=== PATIENT | female | born 1945 | race Caucasian/White ===

== ENCOUNTER 2020-02-09 14:36 | Inpatient (IN) | payer MEDICARE ==
[2020-02-09] VITALS (28 sets, daily range): BP systolic 78–113; BP diastolic 33–68
[~2020-02-09] VITALS: Ht 162.6 cm; Wt 77.2 kg
[2020-02-09 15:03] LABS: HEMATOCRIT 30.4 % (37.0-47.0); HEMOGLOBIN 11.2 gm/dL (12.0-15.0); MCH 33.9 pg (26.0-34.0); MCHC 36.8 g/dL (28.0-37.0); MCV 92.1 fL (80.0-100.0); NUCLEATED RBCS 0 /100WBC; PLATELET COUNT* 187 thou/uL (150-400); RDW-CV 13.5 % (10.5-14.5); WBC 3.9 thou/uL (4.0-11.0)
[2020-02-09] MEDS ORDERED: ZESTRIL5 MG PO (15:04)
[2020-02-09 15:09] LABS: CALCIUM 9.6 mg/dL (8.5-10.1); CREATININE 1.4 mg/dL (0.6-1.3)
[2020-02-09 15:13] LABS: INR 1.1; PROTIME 11.2 Seconds (9.20-11.50)
[2020-02-09 15:20] LABS: ALBUMIN 3.8 g/dL (3.4-5.0); TOTAL BILIRUBIN 0.9 mg/dL (<0.1-1.0); TOTAL PROTEIN 7.3 g/dL (6.4-8.2)
[2020-02-09 15:47] LABS: PLATELET ESTIMATE ADEQUATE
[2020-02-09 15:48] LABS: ABSOLUTE LYMPHOCYTES 0.3 thou/uL (0.8-5.3); ABSOLUTE MONOCYTES 0.2 thou/uL (0.0-1.2); ABSOLUTE NEUTROPHILS 3.4 thou/uL (1.6-8.1)
[2020-02-09 20:02] LABS: CALCIUM 7.9 mg/dL (8.5-10.1); CREATININE 1.4 mg/dL (0.6-1.3); POTASSIUM 5.1 mmol/L (3.5-5.1)
[2020-02-10] VITALS (118 sets, daily range): BP systolic 61–136; BP diastolic 26–115
[2020-02-10 02:56] LABS: CALCIUM 7.8 mg/dL (8.5-10.1); CREATININE 1.5 mg/dL (0.6-1.3); MAGNESIUM 2.2 mg/dL (1.8-2.4); POTASSIUM 4.8 mmol/L (3.5-5.1)
[2020-02-10 06:47] LABS: HEMATOCRIT 29.7 % (37.0-47.0); HEMOGLOBIN 10.8 gm/dL (12.0-15.0); MCH 33.7 pg (26.0-34.0); MCHC 36.4 g/dL (28.0-37.0); MCV 92.7 fL (80.0-100.0); MPV 6.5 fl. (7.2-11.1); PLATELET COUNT* 191 thou/uL (150-400); RDW-CV 13.7 % (10.5-14.5)
[2020-02-10 06:50] LABS: WBC 1.2 thou/uL (4.0-11.0)
[2020-02-10 07:07] LABS: CALCIUM 7.9 mg/dL (8.5-10.1); CREATININE 1.7 mg/dL (0.6-1.3)
[2020-02-10 07:24] LABS: NUCLEATED RBCS 0 /100WBC
[2020-02-10 07:36] LABS: URINE BLOOD NEGATIVE (Negative); URINE CLARITY SL CLOUDY; URINE COLOR BROWN; URINE GLUCOSE-RANDOM NEGATIVE (Negative); URINE KETONES TRACE (Negative); URINE LEUKOCYTES-REFLEX TRACE (Negative); URINE PROTEIN TRACE (Negative)
[2020-02-10 07:38] LABS: ICTOTEST (BILI CONFIRMATORY) Negative (Negative); URINE BILIRUBIN 1+ (Negative); URINE NITRITE-REFLEX POSITIVE (Negative)
[2020-02-10 07:43] LABS: SQUAMOUS 0-3 Few /LPF (0-3)
[2020-02-10 07:44] LABS: BACTERIA-REFLEX >30 Many /HPF (None Seen); CRYSTALS None Seen /LPF (None Seen); HYALINE CASTS 0-3 Few /LPF (None Seen); MUCUS 0-3 Light strn/LPF (None Seen); URINE RBC 0-2 Rare /HPF (0-2); URINE WBC-REFLEX 0-5 Rare /HPF (0-5)
[2020-02-10 07:50] LABS: PHOSPHORUS* 5.8 mg/dL (2.5-4.9)
[2020-02-10 08:00] LABS: ABSOLUTE LYMPHOCYTES 0.5 thou/uL (0.8-5.3); ABSOLUTE MONOCYTES 0.1 thou/uL (0.0-1.2); ABSOLUTE NEUTROPHILS 0.6 thou/uL (1.6-8.1); ANISOCYTOSIS 1+; PLATELET ESTIMATE ADEQUATE; POIKILOCYTOSIS 1+
[2020-02-10 12:06] LABS: URINE POTASSIUM-RANDOM 54.6 mmol/L
--- NOTE | 2020-02-10 12:14 | EKG ---
[place] [address] ELECTROCARDIOGRAM REPORT Name: KERRY CASTRO Nirali Room: [address] IN .R.#: [id number] Admission: 02/09/20 Attend Phys: Duran Kennedy, Discharge: Date of : 45 Date of Service: 02/09/20 1531 Report #: [id number] THIS REPORT FOR: //name// [facility] ED Test Date: 2020-02-09 Test Time: 15:31:28 Pat Name: KERRY CASTRO Department: Room: [facility] Gender: F Division Leader: TP : 1945 Requested By: Emile Rossi Order Number: [id number] MD: Sami Moore Measurements Intervals [place] Rate: 78 P: 18 [place]: 138 QRS: 27 QRSD: 77 T: 85 QT: 397 QTc: 453 Interpretive Statements Sinus rhythm Baseline wander in lead(s) V1 No previous ECG available for comparison Electronically Signed On 02-10-2020 12:14:02 CDT by Sami Moore [email or web address] <ELECTRONICALLY SIGNED> By: Sami Moore MD, FACC 02/10/20 1214 1531 1531 Sami Moore MD, [facility] /EPI
[2020-02-10 12:21] LABS: MAGNESIUM 2.1 mg/dL (1.8-2.4)
--- NOTE | 2020-02-10 12:30 | 2DMMODE ---
[place] [address] 2 D/M-MODE ECHOCARDIOGRAM Name: KERRY CASTRO Nirali Room: [address] IN [facility]#: [id number] Admission: 02/09/20 Attend Phys: Duran Kennedy, Discharge: Date of : 45 Date of Service: 02/10/20 1229 Report #: [id number] THIS REPORT FOR: cc: Segundo Sorenson MD, Khanh MD Liston, Michael J. MD [facility] ~ APPROVED REPORT Study performed: 02/10/2020 10:17:58 EXAM: Comprehensive 2D, Doppler, and color-flow Echocardiogram Patient Location: In-Patient Room #: 006 Status: routine BSA: 1.73 HR: 99 bpm BP: 101/54 mmHg Rhythm: NSR Other Information Technically limited study due to poor apical views due to breast implants. Indications CVA/TIA Chemo Echo Enhancing Agent Indication: Rule out Shunt Agent(s) / Amount(s) Used: Agitated Saline 10 cc 2D Dimensions IVSd: 8.49 (7-11mm) LVOT Diam: 19.16 (18-24mm) LVDd: 37.12 mm PWd: 7.90 (7-11mm) Ascending Ao: 32.92 (22-36mm) LVDs: 31.14 (25-40mm) Aortic Root: 31.93 mm Aortic Valve AoV Peak Wiley.: 1.00 m/s AO Peak Gr.: 3.99 mmHg LVOT Max P.94 mmHg AO Mean Gr.: 2.41 mmHg LVOT Mean P.25 mmHg LVOT Max V: 0.86 m/s AO V2 VTI: 12.27 cm LVOT Mean V: 0.50 m/[place] [address] 2 D/M-MODE ECHOCARDIOGRAM Name: KERRY CASTRO Room: [address] IN [facility]#: [id number] Admission: 02/09/20 Attend Phys: Duran Kennedy, Discharge: Date of : 45 Date of Service: 02/10/20 1229 Report #: [id number] JENS (VTI): 2.90 cm2 LVOT V1 VTI: 12.35 cm Mitral Valve E/A Ratio: 0.72 MV Decel. Time: 265.21 ms MV E Max Wiley.: 0.50 m/s MV PHT: 76.91 ms MVA (PHT): 2.86 cm2 Pulmonary Valve PV Peak Wiley.: 0.80 m/s PV Peak Gr.: 2.55 mmHg Tricuspid Valve RAP Estimate: 5.00 mmHg TR Peak Gr.: 14.54 mmHg RVSP: 19.00 mmHg PA Pressure: 19.00 mmHg Left Ventricle The left ventricle is normal size. Mild global hypokinesis noted. There is normal left ventricular wall thickness. Left ventricular systolic function is mildly decreased. LVEF is 45-50%. Right Ventricle The right ventricle is normal size. The right ventricular systolic function is normal. Atria The left atrium size is normal. The interatrial septum is intact with no evidence for an atrial septal defect. The right atrium size is normal. Aortic Valve Mild aortic valve sclerosis. No aortic regurgitation is present. There is no aortic valvular stenosis. Mitral Valve The mitral valve is normal in structure. There is no mitral valve regurgitation noted. No evidence of mitral valve stenosis. Tricuspid Valve The tricuspid valve is normal in structure. Trace tricuspid regurgitation. No pulmonary hypertension. Pulmonic Valve The pulmonary valve is normal in structure. Trace [place] [address] 2 D/M-MODE ECHOCARDIOGRAM Name: KERRY CASTRO Room: [address]#: [id number] Admission: 02/09/20 Attend Phys: Duran Kennedy, Discharge: Date of : 45 Date of Service: 02/10/20 1229 Report #: [id number] Great Vessels The aortic root is normal in size. IVC is normal in size and collapses >50% with inspiration. Pericardium There is no pericardial effusion. <Conclusion> The left ventricle is normal size. There is normal left ventricular wall thickness. Left ventricular systolic function is mildly decreased. LVEF is 45-50%. Mild global hypokinesis noted. The interatrial septum is intact with no evidence for an atrial septal defect. <ELECTRONICALLY SIGNED> By: Sami Moore MD, FACC 02/10/20 1229 1229 1229 Sami Moore MD, FACC /INF
[2020-02-10 20:26] LABS: CALCIUM 7.5 mg/dL (8.5-10.1)
[2020-02-10 22:10] LABS: BE -8.9 mmol/L (-2 to +3); PCO2 27.1 mmHg (35.0-45.0); PO2 120.5 mmHg (75.0-100.0); pH 7.362 (7.340-7.450)
[2020-02-11] VITALS (91 sets, daily range): BP systolic 70–127; BP diastolic 32–96
[2020-02-11 05:36] LABS: CALCIUM 7.4 mg/dL (8.5-10.1); CREATININE 0.8 mg/dL (0.6-1.3); POTASSIUM 4.5 mmol/L (3.5-5.1)
[2020-02-11 05:49] LABS: ALBUMIN 1.9 g/dL (3.4-5.0); CALCIUM 7.3 mg/dL (8.5-10.1); CREATININE 0.9 mg/dL (0.6-1.3); MAGNESIUM 2.2 mg/dL (1.8-2.4); PHOSPHORUS* 3.1 mg/dL (2.5-4.9); POTASSIUM 4.7 mmol/L (3.5-5.1)
[2020-02-11 08:10] LABS: ABSOLUTE LYMPHOCYTES 0.3 thou/uL (0.8-5.3); ABSOLUTE MONOCYTES 0.3 thou/uL (0.0-1.2); ABSOLUTE NEUTROPHILS 0.3 thou/uL (1.6-8.1); BASOPHILS 0.1 %; EOSINOPHILS 0.4 %; HEMATOCRIT 29.1 % (37.0-47.0); HEMOGLOBIN 10.6 gm/dL (12.0-15.0); LYMPHOCYTES 33.8 %; MCH 33.4 pg (26.0-34.0); MCHC 36.3 g/dL (28.0-37.0); MCV 91.8 fL (80.0-100.0); MONOCYTES 31.6 %; MPV 7.1 fl. (7.2-11.1); NUCLEATED RBCS 0 /100WBC; PLATELET COUNT* 212 thou/uL (150-400); POLYS 34.1 %; RBC 3.17 mil/uL (4.20-5.00); RDW-CV 13.9 % (10.5-14.5)
[2020-02-11 08:40] LABS: WBC 0.8 thou/uL (4.0-11.0)
[2020-02-12] VITALS (94 sets, daily range): BP systolic 81–137; BP diastolic 36–89
[2020-02-12 05:39] LABS: HEMATOCRIT 24.1 % (37.0-47.0); HEMOGLOBIN 8.7 gm/dL (12.0-15.0); MCH 33.6 pg (26.0-34.0); MCHC 36.1 g/dL (28.0-37.0); MPV 7.4 fl. (7.2-11.1); RBC 2.6 mil/uL (4.20-5.00); RDW-CV 14.1 % (10.5-14.5)
[2020-02-12 05:58] LABS: ALBUMIN 1.6 g/dL (3.4-5.0); CALCIUM 7.4 mg/dL (8.5-10.1); MAGNESIUM 2.5 mg/dL (1.8-2.4); POTASSIUM 4.4 mmol/L (3.5-5.1); TOTAL BILIRUBIN 0.7 mg/dL (<0.1-1.0); TOTAL PROTEIN 5.3 g/dL (6.4-8.2)
[2020-02-12 06:11] LABS: WBC 0.9 thou/uL (4.0-11.0)
--- NOTE | 2020-02-12 10:36 | CON ---
[address] [address] CONSULTATION Name: KERRY CASTRO Nirali Room: [address] ADM IN .R.#: [id number] Admission: 02/09/20 Attend Phys: Duran Kennedy MD Discharge: Date of : 45 Report #: [id number] THIS REPORT FOR: //name// cc: Segundo Sorenson MD, Khanh MD ~ THIS REPORT FOR: //name// CC: Duran Sorenson DATE OF SERVICE: 02/12/2020 CARDIOLOGY CONSULTATION PRIMARY CARE PHYSICIAN: Segundo Sorenson MD HISTORY OF PRESENT ILLNESS: The patient is a 74-year-old white female who I was asked to see in the hospital today after she was noted to be in atrial fibrillation. The patient has an extensive and complicated past medical history. Apparently, she was diagnosed with breast cancer back in 2008, treated with mastectomy, chemotherapy and radiation. In the spring of this year, she developed dysfunctional uterine bleeding. She was found to have evidence of endometrial adenocarcinoma. She underwent a hysterectomy in November. She was started on chemotherapy. She was brought here to the Emergency Room 3 days ago. She has been weak and apparently passed out. She has been using a walker. When paramedics arrived, her blood pressure was low. She just received chemotherapy last week. She denied any fever, vomiting, chest pain, shortness of breath. She was admitted to the ICU and started on vasopressors. Last night, the patient went into atrial fibrillation with rapid ventricular response rate. Cardiology consultation requested. At this time, there are no family members available. The patient is drowsy and unable to answer questions. PAST MEDICAL HISTORY: She has had previous breast reconstruction. She has had a fracture of wrist with surgery. MEDICATIONS: On admission include lisinopril for high blood pressure. ALLERGIES: SHE HAS AN ALLERGY TO SULFA DRUGS. SOCIAL HISTORY: She is . Uses alcohol occasionally. Nonsmoker. FAMILY HISTORY: Her brother had lung cancer. REVIEW OF SYSTEMS: No history of stroke, asthma, liver disease, kidney disease, [place] [address] CONSULTATION Name: KERRY CASTRO Room: [address]#: [id number] Admission: 02/09/20 Attend Phys: Duran Kennedy MD Discharge: Date of : 45 Report #: [id number] PHYSICAL EXAMINATION: GENERAL: Revealed an elderly frail appearing female, lying in bed with her eyes closed. VITAL SIGNS: Currently her blood pressure is 100 systolic, pulse is 160 and irregular. She is afebrile. HEENT: She was anicteric, conjunctivae pale. Mucous members are dry. NECK: Veins do not appear distended. CHEST: Clear to auscultation. CARDIOVASCULAR: Regular, tachycardia. ABDOMEN: Soft. EXTREMITIES: Had no pitting edema. SKIN: Cool and dry. NEUROLOGIC: She is drowsy. ECG shows atrial fibrillation with rapid ventricular response rate, nonspecific T-wave changes. She actually had an echocardiogram performed 2 days ago here at [facility] that estimated ejection fraction of 45%. No evidence of shunt. Her workup since she was admitted, portable chest x-ray showed normal heart size, clear lung fatima. LABORATORY DATA: Sodium 127, BUN 35, creatinine 1.0. Her albumin is 1.6. Troponin 0.06. BNP 207. TSH 0.3, T4 of 1.1. Her white blood cell count 0.9, hemoglobin 8.7, platelet count 180,000. IMPRESSION AND RECOMMENDATIONS: 1. Atrial fibrillation. Recommend cardioversion. The patient is hypotensive. 2. Altered mental status. 3. Recent therapy for adenocarcinoma of the uterus. 4. History of breast cancer. 5. Hypertension. I would hold lisinopril. 6. Hypertension. Concerned about sepsis. 7. Neutropenia secondary to recent chemotherapy. 8. Anemia. No history of bleeding. <ELECTRONICALLY SIGNED> By: Dwight Galindo MD, [facility] 02/12/20 1036 0944 [id number] Galindo MD, [facility] /nt
[2020-02-13] VITALS (37 sets, daily range): BP systolic 94–172; BP diastolic 44–74
[2020-02-13 04:59] LABS: ABSOLUTE LYMPHOCYTES 0.4 thou/uL (0.8-5.3); ABSOLUTE MONOCYTES 0.5 thou/uL (0.0-1.2); ABSOLUTE NEUTROPHILS 1.6 thou/uL (1.6-8.1); BASOPHILS 0.1 %; EOSINOPHILS 1.3 %; HEMATOCRIT 23.7 % (37.0-47.0); HEMOGLOBIN 8.4 gm/dL (12.0-15.0); LYMPHOCYTES 16.5 %; MCH 33.3 pg (26.0-34.0); MCHC 35.6 g/dL (28.0-37.0); MCV 93.6 fL (80.0-100.0); MONOCYTES 20.7 %; MPV 6.8 fl. (7.2-11.1); NUCLEATED RBCS 0 /100WBC; PLATELET COUNT* 140 thou/uL (150-400); POLYS 61.4 %; RBC 2.54 mil/uL (4.20-5.00); RDW-CV 14.7 % (10.5-14.5); WBC 2.6 thou/uL (4.0-11.0)
[2020-02-13 05:17] LABS: ALBUMIN 1.6 g/dL (3.4-5.0); CREATININE 0.8 mg/dL (0.6-1.3); MAGNESIUM 2.4 mg/dL (1.8-2.4); POTASSIUM 3.9 mmol/L (3.5-5.1); TOTAL BILIRUBIN 0.5 mg/dL (<0.1-1.0); TOTAL PROTEIN 5.5 g/dL (6.4-8.2)
[2020-02-14 05:26] LABS: HEMATOCRIT 21.6 % (37.0-47.0); HEMOGLOBIN 7.7 gm/dL (12.0-15.0); MCH 33.2 pg (26.0-34.0); MCHC 35.5 g/dL (28.0-37.0); MCV 93.7 fL (80.0-100.0); MPV 7.1 fl. (7.2-11.1); RBC 2.3 mil/uL (4.20-5.00)
[2020-02-14 05:43] LABS: ALBUMIN 1.8 g/dL (3.4-5.0); CALCIUM 8.5 mg/dL (8.5-10.1); CREATININE 0.7 mg/dL (0.6-1.3); MAGNESIUM 1.8 mg/dL (1.8-2.4); POTASSIUM 3.2 mmol/L (3.5-5.1); TOTAL BILIRUBIN 0.4 mg/dL (<0.1-1.0); TOTAL PROTEIN 5.6 g/dL (6.4-8.2)
[2020-02-14 06:00] LABS: WBC 18.2 thou/uL (4.0-11.0)
[2020-02-14 08:00] VITALS: BP 141/39
--- NOTE | 2020-02-14 09:27 | EKG ---
[place] [address] ELECTROCARDIOGRAM REPORT Name: KERRY CASTRO Nirali Room: [address] IN [facility]#: [id number] Admission: 02/09/20 Attend Phys: Duran Kennedy, Discharge: Date of : 45 Date of Service: 02/13/20 0029 Report #: [id number] THIS REPORT FOR: //name// [facility] Test Date: 2020-02-13 Test Time: 00:29:36 Pat Name: KERRY CASTRO Department: Room: [facility] Gender: F Manager Embalmer Funeral Director: JONAS : 1945 Requested By: Dwight Galindo Order Number: [id number] Dileep MD: Dwight Galindo Measurements Intervals [place] Rate: 155 P: [place]: QRS: 10 QRSD: 76 T: 206 QT: 254 QTc: 408 Interpretive Statements Atrial fibrillation with rapid V-rate Repolarization abnormality, prob rate related Electronically Signed On 02-14-2020 9:27:16 CDT by Dwight Galindo [email or web address] <ELECTRONICALLY SIGNED> By: Dwight Galindo MD, [facility] 02/14/20 0927 0029 0029 Dwight Galindo MD, FAC /EPI
--- NOTE | 2020-02-14 10:58 | EKG ---
[place] [address] ELECTROCARDIOGRAM REPORT Name: LGORIAKERRY ANTOINE Room: [address] IN ..#: [id number] Admission: 02/09/20 Attend Phys: Duran Kennedy, Discharge: Date of : 45 Date of Service: 02/11/20 2320 Report #: [id number] THIS REPORT FOR: //name// [facility] Test Date: 2020-02-11 Test Time: 23:20:10 Pat Name: KERRY CASTRO Department: Room: [address] Gender: F Oim Consultant: [id number] : 1945 Requested By: Duran Kennedy Order Number: [id number] Reading MD: Dwight Galindo Measurements Intervals [place] Rate: 125 P: 28 [place]: 123 QRS: 7 QRSD: 68 T: QT: 268 QTc: 387 Interpretive Statements atrial fibrillation Borderline repolarization abnormality Baseline wander in lead(s) I,III,aVL Compared to ECG 02/09/2020 15:31:28 Sinus rhythm no longer present Electronically Signed On 02-14-2020 10:57:48 CDT by Dwight Galindo [email or web address] <ELECTRONICALLY SIGNED> By: Dwight Galindo MD, FAC 02/14/20 1057 2320 2320 Dwight Galindo MD, FAC /EPI
[2020-02-14 12:07] VITALS: BP 155/66
--- NOTE | 2020-02-14 12:36 | CON ---
[address] [address] CONSULTATION Name: KERRY CASTRO Room: [address] IN .R.#: [id number] Admission: 02/09/20 Attend Phys: Duran Kennedy MD Discharge: Date of : 45 Report #: [id number] THIS REPORT FOR: //name// cc: Segundo Sorenson MD, Khanh MD ~ THIS REPORT FOR: //name// CC: Duran Sorenson NEPHROLOGY CONSULT CONSULT REQUESTED BY: Duran Kennedy MD REASON FOR CONSULTATION: Acute kidney injury and hyponatremia. HISTORY OF PRESENT ILLNESS: A 74-year-old female with a history of endometrial carcinoma, followed by ____ as an outpatient, received her third round of chemotherapy of 6 planned treatments about a week or two ago and since then had been feeling dizzy, poor appetite, nausea, has been taking ibuprofen 800 mg every other day and was admitted with a syncopal episode. She received a fluid bolus on admission, has a white cell count of 1.2 and has profound hypotension, currently on two vasopressors maxed out. She had inability to urinate when she came in and had a Stephens catheter placed and has excellent urine output now, although it is very dark appearing. She is very somnolent, but arousable. Her is present at the bedside and helps provide much of the history. REVIEW OF SYSTEMS: Constitutional, psych, heme, eyes, ENT, respiratory, cardiac, GI, , endocrine, all negative except as documented above. PAST MEDICAL HISTORY: Endometrial cancer, hysterectomy, history of hypertension, history of bilateral mastectomy. SOCIAL HISTORY: No tobacco. FAMILY HISTORY: Not pertinent to current clinical case in this 74-year-old female. CURRENT MEDICATIONS: Reviewed. PHYSICAL EXAMINATION: VITAL SIGNS: Blood pressure 88/70, pulse 92, respirations 14, temperature 36.8. GENERAL: No acute distress, somnolent. EYES: Opens eyes. EARS: Externally normal. CARDIOVASCULAR: Regular rate. LUNGS: [place] [address] CONSULTATION Name: KERRY CASTRO Room: [address]#: [id number] Admission: 02/09/20 Attend Phys: Duran Kennedy MD Discharge: Date of : 45 Report #: [id number] ABDOMEN: Soft. MUSCULOSKELETAL: Nontender. PSYCHIATRIC: Somnolent, but arousable. LABORATORY DATA: White cell count 1.2, down from 3.9 on admission, hemoglobin 10.8, platelets 191. Sodium 119, potassium 5, chloride 89, bicarbonate 20, BUN 38, creatinine 1.7, glucose 155, calcium 7.8, phosphorus 5.8. ASSESSMENT: 1. Acute kidney injury in the setting of profound hypotension requiring 2 vasopressors on 02/10/2020 in the setting of also taking ibuprofen 800 mg every other day. Baseline creatinine is unknown. UA is noted. Admission creatinine was 1.4, up to 1.7 on 02/10/2020. Also, has been receiving chemotherapy with future plans for radiation. 2. Urinary tract infection. 3. Leukopenia in the setting of chemotherapy. 4. Severe hyponatremia with sodium of 116 on admission, chest x-ray okay. This is in the setting of endometrial cancer, nausea, poor appetite. 5. Endometrial cancer followed by ____, has received her third out of six planned chemotherapies with plans for radiation and then more chemotherapy. PLAN: 1. Check a renal ultrasound to exclude obstruction. 2. She is receiving a saline bolus and then is to start half normal saline. We will discontinue the half normal saline and draw a sodium now and have results called to me. She may need 3% saline. Blood and urine cultures were ordered. Defer antibiotics to Internal Medicine. 3. Consult Hematology. 4. Echocardiogram has been done. 5. She is on stress-dose steroids per Internal Medicine. 6. On vasopressors. We will add midodrine 10 mg 3 times a day. 7. Check urine sodium, urinalysis and urine potassium, TSH, cortisol is ordered. 8. Recommend arterial line. 9. Check CK. 10. Check labs again in the a.m. The patient is critically ill. Thirty-five minutes of critical care time spent. Thank you for requesting my opinion in the care and management of this patient. <ELECTRONICALLY SIGNED> By: Marta Arcos MD 02/14/20 1236 1156 [id number] Arcos MD /nt
[2020-02-14 20:00] VITALS: BP 153/72
[2020-02-15 00:05] VITALS: BP 169/79
[2020-02-15 09:45] VITALS: BP 141/58
--- NOTE | 2020-02-15 11:40 | EKG ---
[place] [address] ELECTROCARDIOGRAM REPORT Name: ANUEL CASTROSATHYA Campoverde Room: [address] IN .R.#: [id number] Admission: 02/09/20 Attend Phys: Duran Kennedy, Discharge: Date of : 45 Date of Service: 02/15/20 0838 Report #: [id number] THIS REPORT FOR: //name// [facility] Test Date: 2020-02-15 Test Time: 08:38:41 Pat Name: KERRY CASTRO Department: Room: [facility] Gender: F Dry Janitor: : 1945 Requested By: Dwight Galindo Order Number: [id number] Dileep MD: Sami Moore Measurements Intervals [place] Rate: 92 P: 22 [place]: 129 QRS: 1 QRSD: 75 T: 153 QT: 255 QTc: 316 Interpretive Statements Sinus rhythm Probable LVH with secondary repol abnrm Compared to ECG 02/13/2020 00:29:36 Atrial fibrillation no longer present Electronically Signed On 02-15-2020 11:40:08 CDT by Sami Moore [email or web address] <ELECTRONICALLY SIGNED> By: Sami Moore MD, FAC 02/15/20 1140 Sami Moore MD, [facility] /EPI
--- NOTE | 2020-02-18 21:43 | CON ---
[address] [address] CONSULTATION Name: KERRY CASTRO Room: [address] IN M.R.#: [id number] Admission: 02/09/20 Attend Phys: Duran Kennedy MD Discharge: 02/16/20 Date of : 45 Report #: [id number] THIS REPORT FOR: //name// cc: Segundo Sorenson MD, Khanh MD ~ THIS REPORT FOR: //name// CC: Duran Sorenson MD DICTATED BY: Elizabeth Reis INJECTION PRESS OPERATOR DATE OF SERVICE: 02/14/2020 Please note at the time of this dictation, the patient was seen and physically examined by myself. REASON FOR CONSULTATION: Anemia. HISTORY OF PRESENT ILLNESS: This is a 74-year-old female who presented to the Emergency Room with worsening of her weakness. She was brought by EMS by her who states over the past course of several weeks, she has had off and on syncopal episodes that they were unable to attribute to why. They figured it was related to chemo when her volume depleted. However, when they hooked drip, she was noted to be in atrial fibrillation, which is likely the cause of her previous syncopal episodes. She continues to be very lethargic at the time of this evaluation and has been answered most of the questions for her. She has not seen a wireless architect for many years. He states she had a colon maybe 10 years ago and was told it was completely normal. She has had no difficulties with nausea or vomiting or any abdominal pain at this time. It was just more the overall weakness and then she would have diarrhea associated with the chemo. She just finished her third round of chemo for her endometrial cancer. The patient is breast cancer survivor back from 2014 with a bilateral mastectomy and underwent chemo during that time and endocrine therapy as well. ALLERGIES: SULFA. MEDICATIONS FROM HOME: Lisinopril. PAST MEDICAL HISTORY: Breast cancer and currently endometrial cancer, hypertension. PAST SURGICAL HISTORY: Bilateral mastectomy, hysterectomy. FAMILY HISTORY: Negative for any GI [place] [address] CONSULTATION Name: GLORIA,KERRY L Room: [address]#: [id number] Admission: 02/09/20 Attend Phys: Duran Kennedy MD Discharge: 02/16/20 Date of : 45 Report #: [id number] SOCIAL HISTORY: Alcohol on special occasions. Denies any tobacco or illegal drug use. REVIEW OF SYSTEMS: Twelve-point review of systems is essentially negative except what is mentioned in the HPI. PHYSICAL EXAMINATION: VITAL SIGNS: Temperature 36.8, pulse 88, respirations 20, blood pressure 155/66. HEART: Regular rate and rhythm. Currently, she just converted from atrial fibrillation. LUNGS: Diminished, very poor inspiratory volume. ABDOMEN: Soft, positive bowel sounds in all 4 quadrants with no masses or tenderness noted. LABORATORY DATA: Hemoglobin on admission was 11.2, she has gradually steadily declined down to 7.7; white count has jumped to 18.2; platelets 159. GFR is 82. Total bilirubin 0.4, alkaline phosphatase 62, ALT is 26, AST is 68. BUN is 29. IMPRESSION: 1. Anemia, no active bleeding noted. 2. Endometrial cancer, chemo currently. 3. Atrial fibrillation, newly diagnosed with syncope. 4. Leukocytosis. 5. Increased respiratory demand, O2 at 6 liters. PLAN: The patient is currently not a candidate for any endoscopic evaluation for her anemia. We will continue to monitor with her hemoglobin and watch for any overt bleeding at this time. Thank you for allowing us to participate in this patient's care. Please do not hesitate to call with any questions in regard to this consult. <ELECTRONICALLY SIGNED> By: Joaquin Villalta DO 02/18/20 2143 1242 1300Joaquin Villalta DO /nt
== END 2020-02-16 16:40 | DRG 682 ==
LOC: M.ERS 14:36 → M.TBA-ER 15:21 → M.ICU 17:26 → M.TBA-ER 18:46 → M.ICU 20:36 → M.2W 02-14 01:32
PROVIDERS: Family Medicine; Internal Medicine Nephrology; ADMIT Internal Medicine; ATTEND Internal Medicine
PROC: 5A2204Z Restoration of Cardiac Rhythm, Single (ICD-10-PCS; principal; 2020-02-12)
DX: N17.0 Acute kidney failure with tubular necrosis (principal); I50.21 Acute systolic (congestive) heart failure; E43 Unspecified severe protein-calorie malnutrition; I48.20 Chronic atrial fibrillation, unspecified; E87.1 Hypo-osmolality and hyponatremia; E87.2 Acidosis; K56.7 Ileus, unspecified; R57.1 Hypovolemic shock; I95.1 Orthostatic hypotension; C54.1 Malignant neoplasm of endometrium; E87.6 Hypokalemia; D35.2 Benign neoplasm of pituitary gland; D64.9 Anemia, unspecified; R11.0 Nausea; I11.0 Hypertensive heart disease with heart failure; D70.8 Other neutropenia; T45.1X5A Adverse effect of antineoplastic and immunosuppressive drugs, initial encounter; E03.9 Hypothyroidism, unspecified; Z20.828 Contact with and (suspected) exposure to other viral communicable diseases; Y92.89 Other specified places as the place of occurrence of the external cause; Z68.29 Body mass index [BMI] 29.0-29.9, adult; Z90.13 Acquired absence of bilateral breasts and nipples; Z90.710 Acquired absence of both cervix and uterus; Z79.899 Other long term (current) drug therapy; Z88.2 Allergy status to sulfonamides